=== PATIENT | female | born 1960 | race Caucasian/White ===

== ENCOUNTER 2017-08-02 05:49 | Emergency (ER) | payer MEDICAID ==
[~2017-08-02 05:49] MED LIST: DOCU1CAP39 PO; IBUP-232 PO; NORC5TAB PO
[2017-08-02 06:01] VITALS: BP 159/82; PULSE 97; RESP 20; TEMP 98; O2SAT 98
--- NOTE | 2017-08-02 06:25 | PD ---
HPI Chief Complaint: Fall Time Seen by Provider: 05:57 Travel History International Travel<30 days: No Contact w/Intl Traveler<30days: No Traveled to known affect area: No History of Present Illness HPI 56-year-old black female presents emergency department by EMS for evaluation of lower back/buttock pain after falling off all bucket onto a stump with her back. She states that she had been drinking this evening. Pain is moderate. Worse with movement. She denies any other injuries. No alleviating factors. PFSH Past Medical History Autoimmune Disease: No Cancer: No Cardiovascular Problems: No Diminished Hearing: No Endocrine: No Genitourinary: No Musculoskeletal: Yes (FRACTURED RIBS 04/18/2016) Neurologic: No Psychiatric: No Reproductive: No Respiratory: No Immunizations Current: Yes ?: Not Menopausal: Yes : 3 Para: 3 Tubal Ligation: Yes Past Surgical History Gynecologic Surgery: Yes (tubal ligation) Social History Alcohol Use: Yes Tobacco Use: No Substance Use: Yes (marijuana) Allergies-Medications (Allergen,Severity, Reaction): Coded Allergies: No Known Allergies (Verified Adverse Reaction, Unknown, 08/02/17) Reported Meds & Prescriptions Reported Meds & Active Scripts Active Flexeril (Cyclobenzaprine HCl) 10 Mg Tab 10 Mg PO TID Diclofenac Sodium DR (Diclofenac Sodium) 75 Mg Tabdr 75 Mg PO BID Review of Systems General / Constitutional: No: Fever, Chills, Weight Gain, Weight Loss, Other Eyes: No: Diploplia, Blurred Vision, Photophobia, Drainage, Redness, Foreign Body Sensation, Pain, Tearing, Blind Spots, Visual changes, Blindness, Other HENT: No: Headaches, Vertigo, Lightheadedness, Sore Throat, Rhinitis, Rhinorrhea, Congestion, Nosebleed, Neck Stiffness, Neck Pain, Masses, Gingival Bleeding, Dental Difficulties, Ear Discharge, Earache, Other Cardiovascular: No: Chest Pain or Discomfort, Palpitations, Irregular Rhythm, Tachycardia, Diaphoresis, Syncope, Dyspnea on exertion, Varicosities, Edema, Cyanosis, Varicosities, Phlebitis, Claudication, Other Respiratory: No: Cough, Shortness of Breath, Wheezing, Sneezing, Orthopnea, Hemoptysis, Stridor, Night Sweats, Pleuritic Pain, Other Gastrointestinal: No: Nausea, Vomiting, Diarrhea, Abdominal Pain, Hematemesis, Hematochezia, Constipation, Changes in Bowel Habits, Indigestion, Dysphagia, Loss of Appetite, Other Genitourinary: No: Urgency, Frequency, Dysuria, Nocturia, Hematuria, Decreased Urinary Output, Oliguria, Hesitancy, Dribbling, Incontinence, Pelvic Pain, Flank Pain, Dyspareunia, Discharge, Dysmenorrhea, Menorrhagia, Metorrhagia, Vaginal Bleeding, Other Musculoskeletal: Positive: Limited ROM, Pain, No: Weakness Physical Exam Narrative GENERAL: Well-developed, well-nourished in no acute distress. Nontoxic appearing. HEAD: Normocephalic, atraumatic. EYES: Pupils equal round and reactive. Extraocular motions intact. No scleral icterus. No injection or drainage. ENT: TMs clear without erythema. The external auditory canals clear. Nose: clear . Posterior pharynx is pink and moist. No tonsillar edema or exudate. Uvula midline. Airway patent. NECK: Trachea midline.Supple, nontender, moves head freely. No central bony tenderness or spasm. CARDIOVASCULAR: Regular rate and rhythm without murmurs, gallops, or rubs. RESPIRATORY: Clear to auscultation. Breath sounds equal bilaterally. No wheezes , rales, or rhonchi. GASTROINTESTINAL: Abdomen soft, non-tender, nondistended. No hepato-splenomegaly , or palpable masses. No guarding. EXTREMITIES: No clubbing, cyanosis, or edema. No joint tenderness, effusion, or edema noted. BACK: Complaints of lower lumbar sacral tenderness without deformity or crepitance. No flank tenderness. Data Data Last Documented VS Vital Signs Date Time Temp Pulse Resp B/P (MAP) Pulse Ox O2 Delivery O2 Flow Rate FiO2 08/02/17 06:01 98.0 97 20 159/82 (107) 98 Orders Orders Sacrum And Coccyx (08/02/17 ) Ed Discharge Order (08/02/17 06:26) Naproxen (Naprosyn) (08/02/17 06:30) Cyclobenzaprine (Flexeril) (08/02/17 06:30) MDM Medical Decision Making Medical Screen Exam Complete: Yes Emergency Medical Condition: Yes Medical Record Reviewed: Yes Interpretation(s) Sacrum coccyx: Negative for fracture no subluxation. Differential Diagnosis MDM: High Differential diagnoses: Fracture, sprain, strain, dislocation, contusion, neurovascular injury Narrative Course X-rays are negative for bony injury. Patient is given Naprosyn 500 and Flexeril 10 mg p.o. This is back contusion Diagnosis Primary Impression: Back contusion Qualified Codes: S20.229A - Contusion of unspecified back wall of thorax, initial encounter Patient Instructions: General Instructions Additional Instructions: Rest. Ice for the next 3 days followed by heat . Flexeril and Voltaren. Follow-up with a primary care doctor in one week. Return to the ER for emergencies. Med/Other Pt SpecificInfo: Prescription(s) given Scripts Cyclobenzaprine (Flexeril) 10 Mg Tab 10 MG PO TID for Muscle Spasm, #21 TAB 0 Refills Prov: Milo Juarez MD 08/02/[address] (Diclofenac Sodium DR) 75 Mg Tabdr 75 MG PO BID, #14 TAB 0 Refills Prov: Milo Juarez MD 08/02/17 Disposition: 01 DISCHARGE HOME Condition: Stable Toribio Monaco Aug 02, 2017 06:25
[2017-08-02] MEDS ORDERED: DICL75TA PO (06:28)
[2017-08-02] MEDS ORDERED: CYCL10TA PO (06:28)
[2017-08-02] MEDS ORDERED: NAPROXEN 500 MG TAB PO ONE (06:30)
[2017-08-02] MEDS ORDERED: CYCLOBENZAPRINE HCL 10 MG TAB PO ONE (06:30)
--- NOTE | 2017-08-02 06:34 | RADRPT ---
EXAM DATE: 08/02/2017 6:23 AM EDT AGE/SEX: 56 years / Female INDICATIONS: Trauma due to fall. CLINICAL DATA: This is the patient's initial encounter. Patient reports that signs and symptoms have been present for 1 day and indicates a pain score of 10/10. MEDICAL/SURGICAL HISTORY: None. Tubal ligation. COMPARISON: No prior exams available for comparison. FINDINGS: The sacrum and sacroiliac joints appear intact. There is some minimal posterior angulation and wideni ng between the mid and inferior coccyx. Some acute change may be present. Changes could also be chron ic. There is sclerosis at the pubic symphysis. CONCLUSION: Mild malalignment at the junction of the mid and inferior coccyx. Electronically signed by: Mann Del Valle MD 08/02/2017 6:32 AM EDT
== END 2017-08-02 07:01 | disposition home or self-care (01) ==
LOC: NEPD 05:49
DX: S20.229A Contusion of unspecified back wall of thorax, initial encounter (principal); F12.90 Cannabis use, unspecified, uncomplicated; W17.89XA Other fall from one level to another, initial encounter
CPT/HCPCS: 72220; 99283

== ENCOUNTER 2017-08-11 20:26 | Emergency (ER) | payer MEDICAID ==
[~2017-08-11] VITALS: Ht 157.5 cm; Wt 60.0 kg
[~2017-08-11 20:26] MED LIST changes: +CYCL10TA PO; +DICL75TA PO; -DOCU1CAP39 PO; -IBUP-232 PO; -NORC5TAB PO
[2017-08-11 20:36] VITALS: BP 114/64; PULSE 85; RESP 16; TEMP 98.2; O2SAT 98
--- NOTE | 2017-08-11 21:12 | PD ---
HPI Chief Complaint: Injury Time Seen by Provider: 20:53 Travel History International Travel<30 days: No Contact w/Intl Traveler<30days: No Traveled to known affect area: No History of Present Illness HPI 56-year-old female complains of left-sided facial pain, back pain. Patient states that she has been drinking alcohol every day. Patient states that she fell yesterday and injured her left side of face and her back. Patient denies loss of consciousness. Patient states that she has a headache on left side of the head in the back of the head. Patient denies any visual change. Patient complained of sharp pain localized to the left side of the face. Patient denies any neck pain. Patient complains sharp pain to her upper and low back area. Patient denies any chest pain or shortness of breath. Patient denies abdominal pain. Patient denies any focal weakness or numbness of the extremity. PFSH Past Medical History Autoimmune Disease: No Cancer: No Cardiovascular Problems: No Diminished Hearing: No Endocrine: No Genitourinary: No Musculoskeletal: Yes (FRACTURED RIBS 04/18/2016) Neurologic: No Psychiatric: No Reproductive: No Respiratory: No Immunizations Current: Yes ?: Not Menopausal: Yes : 3 Para: 3 Tubal Ligation: Yes Past Surgical History Gynecologic Surgery: Yes (tubal ligation) Social History Alcohol Use: Yes Tobacco Use: No Substance Use: Yes (marijuana) Allergies-Medications (Allergen,Severity, Reaction): Coded Allergies: No Known Allergies (Verified Adverse Reaction, Unknown, 08/02/17) Reported Meds & Prescriptions Reported Meds & Active Scripts Active Ibuprofen 600 Mg Tab 600 Mg PO TID Flexeril (Cyclobenzaprine HCl) 10 Mg Tab 10 Mg PO TID Diclofenac Sodium DR (Diclofenac Sodium) 75 Mg Tabdr 75 Mg PO BID Review of Systems General / Constitutional: No: Fever Eyes: No: Visual changes HENT: No: Headaches Cardiovascular: No: Chest Pain or Discomfort Respiratory: No: Shortness of Breath Gastrointestinal: No: Abdominal Pain Genitourinary: No: Dysuria Musculoskeletal: No: Pain Skin: No Rash Neurologic: No: Weakness Psychiatric: No: Depression Endocrine: No: Polydipsia Hematologic/Lymphatic: No: Easy Bruising Physical Exam Narrative GENERAL: Well-nourished, well-developed patient. SKIN: Focused skin assessment warm/dry. HEAD: Normocephalic. Mild tenderness on palpation occipital area of the scalp. No laceration or abrasion noted. Patient has small abrasion on the left frontal area of the face. EYES: No scleral icterus. No injection or drainage. Pupils 2 mm equal reactive. NECK: Supple, trachea midline. No JVD or lymphadenopathy. No neck tenderness on palpation. CARDIOVASCULAR: Regular rate and rhythm without murmurs, gallops, or rubs. RESPIRATORY: Breath sounds equal bilaterally. No accessory muscle use. GASTROINTESTINAL: Abdomen soft, non-tender, nondistended. MUSCULOSKELETAL: No cyanosis, or edema. BACK: Patient has mild to moderate tenderness on palpation of thoracic and lumbar area of the spine, without obvious deformity. No CVA tenderness. Neurologic exam: Patient seem to be intoxicated however answer questions appropriately. Patient with steady gait. Patient moves all extremity well. No obvious focal neurological deficit. Data Data Last Documented VS Vital Signs Date Time Temp Pulse Resp B/P (MAP) Pulse Ox O2 Delivery O2 Flow Rate FiO2 08/11/17 20:38 Room Air 08/11/17 20:36 98.2 85 16 114/64 (81) [address] Brain W/O Iv Contrast(Rout) (08/11/17 20:58) Ct Facial Bones W/O Iv Cont (08/11/17 20:58) Chest, Single Ap (08/11/17 20:58) Pelvis, Ap Only (Routine) (08/11/17 20:58) Spine, Cervical - Ltd (Ap&Lat) (08/11/17 20:58) Spine, Thoracic-Ap/Lat/Sw(3vw) (08/11/17 20:58) Spine, Lumbar - Ltd (Ap & Lat) (08/11/17 20:58) [facility] Medical Decision Making Medical Screen Exam Complete: Yes Emergency Medical Condition: Yes Interpretation(s) Last Impressions Thoracic Spine X-Ray 08/11/172057 Signed Impressions: CONCLUSION: Moderate degenerative disc disease. No acute findings. Pelvis X-Ray 08/11/172057 Signed Impressions: CONCLUSION: No acute findings. Degenerative changes at the pubic symphysis. Maxillofacial CT 08/11/172057 Signed Impressions: CONCLUSION: 1. No acute fracture. 2. 1 cm radiopaque foreign body in soft tissues adjacent to right zygomatic ar ch. Lumbar Spine X-Ray 08/11/172057 Signed Impressions: CONCLUSION: No acute fracture. Moderate degenerative change with minimal anterolisthesis of L4 on L5. Head CT 08/11/172057 Signed Impressions: CONCLUSION: 1. No acute intracranial abnormalities. 1 cm radiopaque foreign body in soft t issues adjacent to the right zygomatic arch. Chest X-Ray 08/11/172057 Signed Impressions: CONCLUSION: No active disease. Cervical Spine X-Ray 08/11/172057 Signed Impressions: CONCLUSION: No acute findings. Differential Diagnosis Differential diagnosis including contusion, head injury, neck injury, back injury. Narrative Course 56-year-old female with left-sided facial injury, back injury. Status post fall yesterday. Patient with history EtOH abuse. Diagnosis Primary Impression: Closed head injury Qualified Codes: S09.90XA - Unspecified injury of head, initial encounter Additional Impressions: Facial abrasion Qualified Codes: S00.81XA - Abrasion of other part of head, initial encounter Back contusion Qualified Codes: S20.229A - Contusion of unspecified back wall of thorax, initial encounter Alcohol intoxication Qualified Codes: F10.920 - Alcohol use, unspecified with intoxication, uncomplicated Patient Instructions: General Instructions Additional Instructions: Ibuprofen as needed for pain. Head trauma instructions given. Advised [facility] for alcohol problem. Med/Other Pt SpecificInfo: Prescription(s) given Scripts Ibuprofen (Ibuprofen) 600 Mg Tab 600 MG PO TID for Pain, #30 TAB 0 Refills Prov: Wale Alvarez MD 08/11/17 Disposition: 01 DISCHARGE HOME Condition: Stable Wale Alvarez MD Aug 11, 2017 21:12
--- NOTE | 2017-08-11 22:00 | RADRPT ---
EXAM DATE: 08/11/2017 9:39 PM EDT AGE/SEX: 56 years / Female INDICATIONS: Trauma; fall. CLINICAL DATA: This is the patient's initial encounter. Patient reports that signs and symptoms have been present for 1 day and indicates a pain score of Nonresponsive. MEDICAL/SURGICAL HISTORY: Non-responsive. Non-responsive. RADIATION DOSE: 26.94 CTDI (mGy) COMPARISON: No prior exams available for comparison. TECHNIQUE: Contiguous images in the axial and coronal planes were obtained using helical multirow de tector technique. Using automated exposure control and adjustment of the mA and/or kV according to p atient size, radiation dose was kept as low as reasonably achievable to obtain optimal diagnostic ro lity images. DICOM format image data is available electronically for review and comparison. FINDINGS: No acute fracture. Temporomandibular joints intact. Paranasal sinuses are clear. Radiopaque foreign b kendrick noted in the soft tissues adjacent to the right zygomatic arch. This measures about [address] CONCLUSION: 1. No acute fracture. 2. 1 cm radiopaque foreign body in soft tissues adjacent to right zygomatic arch. Electronically signed by: Toribio Brown MD 08/11/2017 9:58 PM EDT
--- NOTE | 2017-08-11 22:01 | RADRPT ---
EXAM DATE: 08/11/2017 9:39 PM EDT AGE/SEX: 56 years / Female INDICATIONS: Trauma; fall. CLINICAL DATA: This is the patient's initial encounter. Patient reports that signs and symptoms have been present for 1 day and indicates a pain score of Nonresponsive. MEDICAL/SURGICAL HISTORY: Non-responsive. Non-responsive. RADIATION DOSE: 45.79 CTDI (mGy) COMPARISON: No prior exams available for comparison. TECHNIQUE: CT of the head without contrast. Using automated exposure control and adjustment of the mA and/or kV according to patient size, radiation dose was kept as low as reasonably achievable to ob tain optimal diagnostic quality images. DICOM format image data is available electronically for revi ew and comparison. FINDINGS: Cerebrum: The ventricles are normal for age. No evidence of midline shift, mass lesion, hemorrhage or acute infarction. No extraaxial fluid collections are seen. Posterior Fossa: The cerebellum and brainstem are intact. The 4th ventricle is midline. The cerebe llopontine angle is unremarkable. Extracranial: The visualized portion of the orbits is intact. Skull: The calvaria is intact. No evidence of skull fracture. CONCLUSION: 1. No acute intracranial abnormalities. 1 cm radiopaque foreign body in soft tissues adjacent to the right zygomatic arch. Electronically signed by: Toribio Brown MD 08/11/2017 10:00 PM EDT
--- NOTE | 2017-08-11 22:08 | RADRPT ---
EXAM DATE: 08/11/2017 9:47 PM EDT AGE/SEX: 56 years / Female INDICATIONS: Pain from fall in left chest. CLINICAL DATA: This is the patient's initial encounter. Patient reports that signs and symptoms have been present for 1 day and indicates a pain score of 5/10. MEDICAL/SURGICAL HISTORY: None. None. COMPARISON: No prior exams available for comparison. FINDINGS: A single AP view of the chest demonstrates the lungs to be symmetrically aerated without evidence of mass, infiltrate or effusion. The cardiomediastinal contours are unremarkable. Osseous structures a re intact. CONCLUSION: No active disease. Electronically signed by: Toribio Brown MD 08/11/2017 10:07 PM EDT
--- NOTE | 2017-08-11 22:09 | RADRPT ---
EXAM DATE: 08/11/2017 9:46 PM EDT AGE/SEX: 56 years / Female INDICATIONS: Pain from fall in left pelvis. CLINICAL DATA: This is the patient's initial encounter. Patient reports that signs and symptoms have been present for 1 day and indicates a pain score of 5/10. MEDICAL/SURGICAL HISTORY: None. None. COMPARISON: No prior exams available for comparison. FINDINGS: Examination of the pelvis demonstrates no evidence of fracture or dislocation. Bony mineralization i s normal. There is no widening of the sacroiliac joints. No foreign body is identified. CONCLUSION: No acute findings. Degenerative changes at the pubic symphysis. Electronically signed by: Toribio Brown MD 08/11/2017 10:08 PM EDT
--- NOTE | 2017-08-11 22:10 | RADRPT ---
EXAM DATE: 08/11/2017 9:44 PM EDT AGE/SEX: 56 years / Female INDICATIONS: Pain from fall in left lower back. CLINICAL DATA: This is the patient's initial encounter. Patient reports that signs and symptoms have been present for 1 day and indicates a pain score of 4/10. MEDICAL/SURGICAL HISTORY: None. None. COMPARISON: No prior exams available for comparison. FINDINGS: No acute fracture. Minimal anterolisthesis of L4 on L5. Mild facet arthropathy. CONCLUSION: No acute fracture. Moderate degenerative change with minimal anterolisthesis of L4 on L5. Electronically signed by: Toribio Brown MD 08/11/2017 10:09 PM EDT
--- NOTE | 2017-08-11 22:11 | RADRPT ---
EXAM DATE: 08/11/2017 9:45 PM EDT AGE/SEX: 56 years / Female INDICATIONS: Pain from fall in left upper back. CLINICAL DATA: This is the patient's initial encounter. Patient reports that signs and symptoms have been present for 1 day and indicates a pain score of 5/10. MEDICAL/SURGICAL HISTORY: None. None. COMPARISON: No prior exams available for comparison. FINDINGS: The vertebral bodies are in normal alignment without evidence of compression deformity. Moderate dege nerative disc disease. Bone density is normal for age. Soft tissues are grossly intact. CONCLUSION: Moderate degenerative disc disease. No acute findings. Electronically signed by: Toribio Brown MD 08/11/2017 10:10 PM EDT
--- NOTE | 2017-08-11 22:15 | RADRPT ---
EXAM DATE: 08/11/2017 9:43 PM EDT AGE/SEX: 56 years / Female INDICATIONS: Pain from fall in neck. CLINICAL DATA: This is the patient's initial encounter. Patient reports that signs and symptoms have been present for 1 day and indicates a pain score of 5/10. MEDICAL/SURGICAL HISTORY: None. None. COMPARISON: No prior exams available for comparison. FINDINGS: The vertebral bodies are in normal alignment without evidence of compression deformity Bone density is normal for age. Soft tissues are grossly intact. CONCLUSION: No acute findings. Electronically signed by: Toribio Brown MD 08/11/2017 10:14 PM EDT
[2017-08-11] MEDS ORDERED: IBUP-232 PO (22:18)
== END 2017-08-12 03:02 | disposition home or self-care (01) ==
LOC: NEPD 20:26
DX: S00.81XA Abrasion of other part of head, initial encounter (principal); S20.229A Contusion of unspecified back wall of thorax, initial encounter; F10.920 Alcohol use, unspecified with intoxication, uncomplicated; M54.9 Dorsalgia, unspecified; F12.90 Cannabis use, unspecified, uncomplicated; W19.XXXA Unspecified fall, initial encounter
CPT/HCPCS: 70450; 70486; 71045; 72040; 72072; 72100; 72170; 99284